=== PATIENT | male | born 1995 | race American Indian/Alaskan Native ===

== ENCOUNTER 2019-08-12 05:33 | Emergency (ER) | payer SELFPAY ==
[2019-08-12] MEDS ORDERED: ASPIRIN 325 MG TAB PO ONE (05:39)
--- NOTE | 2019-08-12 05:51 | Event Note ---
ED Screening Note Date of service: 08/12/19 ED Screening Note: This initial assessment/diagnostic orders/clinical plan/treatment(s) is/are subject to change based on patients health status, clinical progression and re- assessment by fellow clinical providers in the ED. Further treatment and workup at subsequent clinical providers discretion. Patient/guardian urged not to elope from the ED as their condition may be serious if not clinically assessed and managed. Patient is a 23-year-old male who is presenting with some chest discomfort for the past 2 days. Patient also has some shortness of breath and some difficulty with breathing when he lays flat. Patient states a year ago he had pericarditis in the having some issues since. Patient did recently travel to [place] from [place] 2 weeks ago Initial orders include: A cardiac workup including d-dimer since the patient had recent travel. The EKG was reviewed and showed no ST segment elevation or depression. Patient does have some T-wave abnormality present.
--- NOTE | 2019-08-12 06:10 | XRay Report ---
CHEST 2 VIEWS INDICATION / CLINICAL INFORMATION: chest pain. COMPARISON: None available. FINDINGS: SUPPORT DEVICES: None. HEART / MEDIASTINUM: No significant abnormality. LUNGS / PLEURA: No significant pulmonary or pleural abnormality. No pneumothorax. ADDITIONAL FINDINGS: No significant additional findings. IMPRESSION: 1. No acute findings. Signer Name: Raissa Bustamante MD Signed: 08/12/2019 6:06 AM Workstation Name: [id number]
[2019-08-12 06:23] LABS: Basophils # (Auto) 0.1 K/mm3 (0.0-0.1); Basophils % (Auto) 0.7 % (0.0-1.8); Eosinophils # (Auto) 0.2 K/mm3 (0.0-0.4); Eosinophils % (Auto) 2.8 % (0.0-4.3); Hematocrit 43.5 % (35.5-45.6); Hemoglobin 15.1 gm/dl (11.8-15.2); Lymphocytes # (Auto) 3.8 K/mm3 (1.2-5.4); Lymphocytes % (Auto) 46.4 % (13.4-35.0); Mean Corpuscular HGB Conc 35 % (32-34); Mean Corpuscular Volume 83 fl (84-94); Monocytes # (Auto) 0.7 K/mm3 (0.0-0.8); Monocytes % (Auto) 8.6 % (0.0-7.3); Platelet Count 244 K/mm3 (140-440); Red Blood Count 5.25 M/mm3 (3.65-5.03); Red Cell Distribution Width 13.9 % (13.2-15.2)
[2019-08-12 06:40] LABS: BUN/Creatinine Ratio 22; Blood Urea Nitrogen 22 mg/dL (9-20); Calcium 9.2 mg/dL (8.4-10.2); Hemolysis Index 7
[2019-08-12 06:46] LABS: INR 1.22 (0.87-1.13)
[2019-08-12 06:47] LABS: Partial Thromboplastin Time 30.3 Sec. (24.2-36.6)
[2019-08-12] MEDS ORDERED: PANTOPRAZOLE 40 MG INJ IV ONE (06:47)
[2019-08-12] MEDS ORDERED: KETOROLAC 30 MG/1 ML INJ IV ONE (06:47)
--- NOTE | 2019-08-12 06:48 | Emergency Department Report ---
ED Chest Pain HPI - General Chief Complaint: Chest Pain Stated Complaint: CHEST PAIN Time Seen by Provider: 08/12/19 05:39 Source: patient, EMS Mode of arrival: Stretcher Limitations: No Limitations - History of Present Illness Initial Comments: This is a 23-year-old man who was diagnosed with pericarditis about a year ago at [facility] in [facility]. He states he was less back to that facility 3 weeks ago with similar symptoms. 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 He is a poor historian. However, from what I can tell it seems that he had an echocardiogram that showed a pericardial effusion. He is never had a pericardiocentesis. He had a brief hospitalization. Patient states that his chest hurts "every day. He complains of pain in the epigastric subxiphoid region which she states also involves the back. It is intermittent. He has not been sweating or short of breath acutely. He states he has some chronic shortness of breath. 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 He does not complain of any acute nausea vomiting. It is hard to identify a reason why he came specifically today. He states his symptoms are really quite recurrent. Has no doctor in the area yet. MD Complaint: chest pain -: year(s) Onset: during rest Pain Location: epigastric, other (subxiphoid) Pain Radiation: back Quality: aching Consistency: intermittent Improves With: nothing Worsens With: nothing Context: other (history of pericarditis) re: dyspnea (vague). denies: nausea, vomting, diaphoresis Other Symptoms: denies: cough, fever, syncope Treatments Prior to Arrival: none Aspirin use within the Past 7 Days: (0) No - Related Data Previous Rx's Medication Instructions Recorded Last Taken Type Lansoprazole [Prevacid] 15 mg PO BID #30 cap 08/12/19 Unknown Rx traMADol [Ultram 50 MG tab] 50 mg PO Q6HR PRN #10 tablet 08/12/19 Unknown Rx Allergies Allergy/AdvReac Type Severity Reaction Status Date / Time No Known Allergies Allergy Verified 08/12/19 05:43 Heart Score - HEART Score History: Slightly suspicious EKG: Normal Age: < 45 Risk factors: No known risk factors Troponin: < normal limit HEART Score: 0 - Critical Actions Critical Actions: 0-3 pts:0.9-1.7%risk of adverse cardiac event.Candidate for discharge ED Review of Systems ROS: Stated complaint: CHEST PAIN Other details as noted in HPI Constitutional: denies: chills, fever Eyes: denies: eye pain, eye discharge, vision change ENT: denies: ear pain, throat pain Respiratory: see HPI, shortness of breath. denies: cough, wheezing Cardiovascular: as per HPI, chest pain. denies: palpitations Endocrine: no symptoms reported Gastrointestinal: denies: abdominal pain, nausea, diarrhea Genitourinary: denies: urgency, dysuria Musculoskeletal: denies: back pain, joint swelling, arthralgia Skin: denies: rash, lesions Neurological: denies: headache, weakness, paresthesias Psychiatric: denies: anxiety, depression Hematological/Lymphatic: denies: easy bleeding, easy bruising ED Past Medical Hx - Past Medical History Previous Medical History?: Yes Additional medical history: pericarditis - Surgical History Past Surgical History?: No - Social History Smoking Status: Current Every Day Smoker Substance Use Type: None - Medications Home Medications: Home Medications Medication Instructions Recorded Confirmed Last Taken Type Lansoprazole [Prevacid] 15 mg PO BID #30 cap 08/12/19 Unknown Rx traMADol [Ultram 50 MG tab] 50 mg PO Q6HR PRN #10 tablet 08/12/19 Unknown Rx ED Physical Exam - General Limitations: No Limitations General appearance: alert, in no apparent distress - Head Head exam: Present: atraumatic, normocephalic - Eye Eye exam: Present: normal appearance. Absent: scleral icterus - ENT ENT exam: Present: mucous membranes moist - Neck Neck exam: Present: normal inspection. Absent: tenderness, meningismus - Respiratory Respiratory exam: Present: normal lung sounds bilaterally. Absent: respiratory distress - Cardiovascular Cardiovascular Exam: Present: regular rate, normal rhythm. Absent: systolic murmur, diastolic murmur, rubs, gallop - GI/Abdominal GI/Abdominal exam: Present: soft, normal bowel sounds. Absent: distended, tenderness, guarding, rebound - Rectal Rectal exam: Present: deferred - Extremities Exam Extremities exam: Present: normal inspection, normal capillary refill. Absent: pedal edema, joint swelling, calf tenderness - Back Exam Back exam: Present: normal inspection - Neurological Exam Neurological exam: Present: alert, oriented X3, CN II-XII intact. Absent: motor sensory deficit - Psychiatric Psychiatric exam: Present: normal affect, normal mood - Skin Skin exam: Present: warm, dry, intact, normal color. Absent: rash ED Course Vital Signs 08/12/19 08/12/19 08/12/19 05:43 06:00 06:30 Temperature 98.4 F Pulse Rate 64 64 Respiratory 13 15 20 Rate Blood Pressure 125/80 125/80 124/69 Blood Pressure [Right] O2 Sat by Pulse 98 99 98 Oximetry 08/12/19 08/12/19 07:13 07:15 Temperature 97.8 F Pulse Rate 57 L Respiratory 15 15 Rate Blood Pressure Blood Pressure 122/90 [Right] O2 Sat by Pulse Oximetry - Reevaluation(s) Reevaluation #1: Patient resting comfortably. He is chatting on the phone. He is appropriate for outpatient management. I don't see any indication of pericarditis. I am concerned that he has tenderness over the epigastrium. He will be given lansoprazole and analgesia. He is referred for follow-up. 08/12/19 07:52 ED Medical Decision Making - Lab Data Result diagrams: 08/12/19 05:55 08/12/19 05:55 Laboratory Results - last 24 hr 08/12/19 08/12/19 08/12/19 05:55 05:55 05:55 WBC 8.2 RBC 5.25 H Hgb 15.1 Hct 43.5 MCV 83 L MCH 29 MCHC 35 H RDW 13.9 Plt Count 244 Lymph % (Auto) 46.4 H [place] % (Auto) 8.6 H Eos % (Auto) 2.8 Baso % (Auto) 0.7 Lymph # 3.8 [place] # 0.7 Eos # 0.2 Baso # 0.1 Seg Neutrophils % 41.5 Seg Neutrophils # 3.4 PT 15.3 H INR 1.22 H APTT 30.3 Sodium 135 L Potassium 4.1 Chloride 100.1 Carbon Dioxide 25 Anion Gap 14 BUN 22 H Creatinine 1.0 Estimated GFR > 60 BUN/Creatinine Ratio 22 Glucose 94 Calcium 9.2 Troponin T < 0.010 Laboratory Results - last 24 hr 08/12/19 08/12/19 08/12/19 05:55 05:55 05:55 WBC 8.2 RBC 5.25 H Hgb 15.1 Hct 43.5 MCV 83 L MCH 29 MCHC 35 H RDW 13.9 Plt Count 244 Lymph % (Auto) 46.4 H [place] % (Auto) 8.6 H Eos % (Auto) 2.8 Baso % (Auto) 0.7 Lymph # 3.8 [place] # 0.7 Eos # 0.2 Baso # 0.1 Seg Neutrophils % 41.5 Seg Neutrophils # 3.4 PT 15.3 H INR 1.22 H APTT 30.3 D-Dimer Sodium 135 L Potassium 4.1 Chloride 100.1 Carbon Dioxide 25 Anion Gap 14 BUN 22 H Creatinine 1.0 Estimated GFR > 60 BUN/Creatinine Ratio 22 Glucose 94 Calcium 9.2 Total Bilirubin Direct Bilirubin Indirect Bilirubin AST ALT Alkaline Phosphatase Total Creatine Kinase CK-MB (CK-2) CK-MB (CK-2) Rel Index Troponin T < 0.010 C-Reactive Protein Total Protein Albumin Albumin/Globulin Ratio 08/12/19 08/12/19 05:55 06:57 WBC RBC Hgb Hct MCV MCH MCHC RDW Plt Count Lymph % (Auto) [place] % (Auto) Eos % (Auto) Baso % (Auto) Lymph # [place] # Eos # Baso # Seg Neutrophils % Seg Neutrophils # PT INR APTT D-Dimer 198.77 Sodium Potassium Chloride Carbon Dioxide Anion Gap BUN Creatinine Estimated GFR BUN/Creatinine Ratio Glucose Calcium Total Bilirubin 0.20 Direct Bilirubin < 0.2 Indirect Bilirubin 0.0 AST 28 ALT 42 Alkaline Phosphatase 83 Total Creatine Kinase 262 H CK-MB (CK-2) 1.7 CK-MB (CK-2) Rel Index 0.6 Troponin T C-Reactive Protein 0.20 Total Protein 7.7 Albumin 4.4 Albumin/Globulin Ratio 1.3 - EKG Data -: EKG Interpreted by Nh EKG shows normal: sinus rhythm Rate: normal - EKG Data Interpretation: nonspecific ST-T wave leona, other (nonspecific S1 Q3 T3 pattern) - Radiology Data Radiology results: image reviewed (no acute process) Critical care attestation.: If time is entered above; I have spent that time in minutes in the direct care of this critically ill patient, excluding procedure time. ED Disposition Clinical Impression: Atypical chest pain, Epigastric pain Disposition: TO HOME OR SELFCARE Is pt being admited?: No Does the pt Need Aspirin: No Condition: Stable Instructions: Chest Pain (ED), Abdominal Pain (ED) Additional Instructions: I would recommend further evaluation as an outpatient. See referrals. Rx as directed. Return any acute change or problem. Prescriptions: Lansoprazole [Prevacid] 15 mg PO BID #30 cap traMADol [Ultram 50 MG tab] 50 mg PO Q6HR PRN #10 tablet PRN Reason: Pain Referrals: TAWANNA DENG MD [Staff Physician] - 3-5 Days [facility] [Provider Group] - 2-3 Days Time of Disposition: 07:54
[2019-08-12 07:04] LABS: Creatine Kinase MB 1.7 ng/mL (0.0-4.0)
[2019-08-12 07:06] LABS: Alanine Aminotransferase 42 units/L (7-56); Albumin 4.4 g/dL (3.9-5)
[2019-08-12 07:16] LABS: Bilirubin,Direct < 0.2 mg/dL (0-0.2)
[2019-08-12 07:18] VITALS: BP 122/90
[2019-08-12 08:05] LABS: Erythrocyte Sedimentation Rate 9 mm/Hr (0-20)
[2019-08-12 08:10] LABS: Bilirubin,Urine NEG (Negative); Blood,Urine NEG (Negative); Color,Urine Yellow (Yellow); Protein,Urine <15 mg/dL mg/dL (Negative); Urobilinogen,Urine < 2.0 mg/dL (<2.0)
[2019-08-12 08:14] LABS: Amphetamine Screen,Urine PRESUMPTIVE NEGATIVE; Benzodiazepines Screen,Urine PRESUMPTIVE NEGATIVE; Cocaine Screen,Urine PRESUMPTIVE NEGATIVE; Methadone Screen,Urine PRESUMPTIVE NEGATIVE; Opiate Screen,Urine PRESUMPTIVE NEGATIVE
[2019-08-12 08:27] LABS: Cannabinoid Screen,Urine PRESUMPTIVE POSITIVE
== END 2019-08-12 08:30 | disposition home or self-care (01) ==
LOC: ED 05:33
DX: R07.89 Other chest pain (principal); R10.13 Epigastric pain; F17.200 Nicotine dependence, unspecified, uncomplicated; Z79.899 Other long term (current) drug therapy
CPT/HCPCS: 36415; 71046; 80048; 80076; 80307; 81001; 82550; 82553; 84484; 85025; 85379; 85610; 85652; 85730; 86140; 93005; 93010; 96374; 96375; 99285; C9113; J1885

== ENCOUNTER 2019-08-12 12:07 | Emergency (ER) | payer OTHER ==
--- NOTE | 2019-08-12 12:33 | Emergency Department Report ---
Blank Doc - Documentation Documentation: 23-year-old male that presents with returned chest pain. Was just discharged in the ED. Stated symptoms return. This initial assessment/diagnostic orders/clinical plan/treatment(s) is/are subject to change based on patient's health status, clinical progression and re-assessment by fellow clinical providers in the ED. Further treatment and workup at subsequent clinical providers discretion. Patient/guardians urged not to elope from the ED as their condition may be serious if not clinically assessed and managed. Initial orders include: 1- Patient sent to [facility] for further evaluation and treatment 2- labs reviewed from this morning. 3- Will repeat EKG and 1 trop level
[2019-08-12 12:34] VITALS: BP 135/74
== END 2019-08-12 13:30 | disposition left against medical advice (07) ==
LOC: ED 12:07
DX: R07.89 Other chest pain (principal); Z53.21 Procedure and treatment not carried out due to patient leaving prior to being seen by health care provider
CPT/HCPCS: 93005; 93010

== ENCOUNTER 2019-08-14 00:12 | Emergency (ER) | payer SELFPAY ==
[2019-08-14] MEDS ORDERED: KETOROLAC 30 MG/1 ML INJ IV ONE (00:31)
[2019-08-14] MEDS ORDERED: FAMOTIDINE 20 MG/2 ML INJ IV ONE (00:31)
--- NOTE | 2019-08-14 01:04 | Emergency Department Report ---
ED General Adult HPI - General Chief complaint: Chest Pain Stated complaint: CHEST PAIN Time Seen by Provider: 08/14/19 00:20 Source: patient, EMS ( EMS documentation not available at time of chart dictation ), RN notes reviewed, old records reviewed Mode of arrival: Stretcher Limitations: No Limitations - History of Present Illness Initial comments: This is a 23-year-old gentleman. This patient is not known to this provider previously. The patient recently moved here from [facility]. He reports that he took a [employer] bus down here, with frequent stops for gas and bathroom brakes. This is his third visit to this department for chest pain. He presents to the ER with a complaint of left-sided chest wall pain, palpitations and pressure. It does not radiate to the back, arms or neck. There is no vomiting or diaphoresis. The patient denies additional complaints. On review of systems, he does endorse chronic long-standing cannabis recreational consumption. He denies coingestions. He denies homicidality, suicidality and hallucinations. He was recently prescribed a proton pump inhibitor and tramadol at this facility by one of my colleagues, however, he did not fill this because of cost. The patient reports that he does not have a primary care doctor. The patient has had multiple ER visits to this hospital for chest pain He's had unremarkable laboratory studies, chest x-ray, and age-appropriate EKG. Currently, he is in no acute distress, and is playing with a cellular phone. -: Gradual Location: chest Radiation: non-radiation Severity scale (0 -10): 10 Quality: stabbing Consistency: intermittent, other Worsens with: movement, other (palpation) - Related Data Allergies Allergy/AdvReac Type Severity Reaction Status Date / Time No Known Allergies Allergy Verified 08/12/19 05:43 ED Review of Systems ROS: Stated complaint: CHEST PAIN Other details as noted in HPI Constitutional: denies: fever Eyes: denies: eye discharge ENT: denies: congestion Respiratory: denies: wheezing Cardiovascular: chest pain, palpitations Gastrointestinal: denies: vomiting Musculoskeletal: denies: back pain Psychiatric: denies: anxiety, depression, auditory hallucinations, visual hallucinations, homicidal thoughts, suicidal thoughts ED Past Medical Hx - Past Medical History Additional medical history: pericarditis - Social History Smoking Status: Current Every Day Smoker ED Physical Exam - General Limitations: No Limitations General appearance: alert, in no apparent distress - Head Head exam: Present: atraumatic, normocephalic - Eye Eye exam: Present: normal appearance, EOMI. Absent: nystagmus - ENT ENT exam: Present: normal exam, normal orophraynx, mucous membranes moist, normal external ear exam - Neck Neck exam: Present: normal inspection, full ROM. Absent: tenderness, meningismus - Respiratory Respiratory exam: Present: normal lung sounds bilaterally, chest wall tenderness. Absent: respiratory distress - Cardiovascular Cardiovascular Exam: Present: normal rhythm, bradycardia, normal heart sounds. Absent: systolic murmur, diastolic murmur, rubs, gallop - GI/Abdominal GI/Abdominal exam: Present: soft. Absent: distended, tenderness, guarding, rebound, rigid, pulsatile mass - Rectal Rectal exam: Present: deferred - Extremities Exam Extremities exam: Present: normal inspection, full ROM, other (2+ pulses noted in the bilateral upper, lower extremities. There is no long bone tenderness. Musculoskeletal compartments are soft. The pelvis is stable.). Absent: pedal edema, calf tenderness - Back Exam Back exam: Present: normal inspection, full ROM. Absent: tenderness, CVA tenderness (R), CVA tenderness (L), paraspinal tenderness, vertebral tenderness - Neurological Exam Neurological exam: Present: alert, other (there is no facial droop. The tongue is midline. Extraocular movements are intact bilaterally. Patient speaking in full complete sentences. Shoulder shrug is intact bilaterally. Hearing is grossly intact bilaterally. Visual acuity intact to finger counting and color perception at a close distance. 5/5 strength 4 extremities. Sensation intact to light touch in 4 extremities.). Absent: motor sensory deficit - Psychiatric Psychiatric exam: Present: normal affect, normal mood. Absent: homicidal ideation, suicidal ideation - Skin Skin exam: Present: warm, dry, intact, normal color. Absent: rash ED Course Vital Signs 08/14/19 08/14/19 00:43 00:46 Temperature 98.1 F Pulse Rate 58 L Respiratory 18 16 Rate Blood Pressure 105/63 O2 Sat by Pulse 100 Oximetry ED Medical Decision Making - Lab Data Vital Signs 08/14/19 08/14/19 00:43 00:46 Temperature 98.1 F Pulse Rate 58 L Respiratory 18 16 Rate Blood Pressure 105/63 O2 Sat by Pulse 100 Oximetry - EKG Data -: EKG Interpreted by Me EKG shows normal: sinus rhythm Rate: bradycardia - EKG Data When compared to previous EKG there are: no significant change Interpretation: normal EKG 08/14/19 01:03 The EKG shows a sinus bradycardia, 56 bpm, normal axis, QTC 350 ms, high left ventricular voltage, the EKG is unchanged from prior, there is early repolarization, the EKG is not consistent with ST elevation myocardial infarction. - Radiology Data Radiology results: pending, report reviewed, image reviewed Prior chest x-rays are reviewed and appreciated - Medical Decision Making Differential diagnosis, including not limited to: Anxiety, GERD, gastritis, costochondritis, cannabis dependence Assessment and plan: 23-year-old gentleman with recurrent complaint of chest wall pain, palpitations. He is afebrile with reassuring vital signs. There is a very strong odor of cannabis emanating from the patient, and he does endorse recreational cannabis use. However, he is clinically sober at this time. He exhibits decision-making capacity at this time. He is not tachycardic, hypoxic, or tachypneic, he is low risk by well's criteria for pulmonary embolism, and he is also perc negative He's recently had an ACS risk stratification at this hospital within the past week this is unlikely to be ACS extensive discussion had with patient regarding need to cease marijuana consumption he can follow up with an outpatient primary physician he does not appear to have an emergent condition at this time Critical care attestation.: If time is entered above; I have spent that time in minutes in the direct care of this critically ill patient, excluding procedure time. ED Disposition Clinical Impression: Chest wall pain, Marijuana use Disposition: - TO HOME OR SELFCARE Is pt being admited?: No Does the pt Need Aspirin: No Condition: Stable Additional Instructions: Patient may discontinue Prevacid, and tramadol. Patient may take [id number] Protonix as directed on the package for sensation of chest pain and heartburn. Patient may also take ibuprofen, 600 mg with food, every 6 hours, alternating with Tylenol, 650 mg, every 4-6 hours, as needed for pain. Recommend the patient stop consuming cannabis and marijuana. These may be contributing to his symptoms. In addition, marijuana consumption is not medically regulated in the [facility], and patient runs the risk of having marijuana contaminated with chemicals which may cause disability, , paralysis, loss of quality of life. Recommend patient follow-up with the primary care doctor within the next month. Please return to the emergency room right away with new, worsened or different symptoms not present on the initial emergency room evaluation. Referrals: [facility] [Provider Group] - 3-5 Days [facility] [Provider Group] - 3-5 Days
[2019-08-14 01:34] VITALS: BP 120/68
== END 2019-08-14 01:34 | disposition home or self-care (01) ==
LOC: ED 00:12
DX: R07.89 Other chest pain (principal); F12.10 Cannabis abuse, uncomplicated; F17.200 Nicotine dependence, unspecified, uncomplicated
CPT/HCPCS: 93005; 93010; 96374; 96375; 99284; J1885

== ENCOUNTER 2019-11-14 02:41 | Emergency (ER) | payer SELFPAY ==
[2019-11-14] MEDS ORDERED: HYDROcodone/ACETAMINOPHEN 5-325 MG TAB PO ONE (02:54)
[2019-11-14] MEDS ORDERED: ASPIRIN 325 MG TAB PO ONE (02:55)
[2019-11-14] MEDS ORDERED: ASPIRIN 325 MG TAB ONE (02:56)
--- NOTE | 2019-11-14 02:58 | Emergency Department Report ---
Chief Complaint: Chest Pain Stated Complaint: CHEST PAIN - HPI History of Present Illness: 23 y/o M p/w a cc of CP. 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 Pt admits to SOB and n/v but denies diaphoresis. Pt admits to slight pleurisy but denies recent flights/long car trips. MSE screening note: Focused history and physical exam performed. Due to findings the following was ordered: cbc, bmp, cardiac enzymes, ddimer, ekg ED Disposition for MSE Condition: Stable
[2019-11-14 03:22] LABS: Basophils # (Auto) 0.1 K/mm3 (0.0-0.1); Eosinophils # (Auto) 0.2 K/mm3 (0.0-0.4); Eosinophils % (Auto) 2.7 % (0.0-4.3); Monocytes # (Auto) 0.5 K/mm3 (0.0-0.8); Monocytes % (Auto) 8.1 % (0.0-7.3)
[2019-11-14 03:36] LABS: Basophils % (Auto) 1.1 % (0.0-1.8); Creatine Kinase MB 2.1 ng/mL (0.0-4.0); Hematocrit 43.9 % (35.5-45.6); Hemoglobin 15.5 gm/dl (11.8-15.2); Lymphocytes # (Auto) 3.3 K/mm3 (1.2-5.4); Lymphocytes % (Auto) 49.7 % (13.4-35.0); Mean Corpuscular HGB Conc 35 % (32-34); Mean Corpuscular Volume 83 fl (84-94); Platelet Count 270 K/mm3 (140-440); Red Blood Count 5.29 M/mm3 (3.65-5.03)
[2019-11-14 03:37] LABS: BUN/Creatinine Ratio 17; Blood Urea Nitrogen 17 mg/dL (9-20); Calcium 9.8 mg/dL (8.4-10.2); Hemolysis Index 8
[2019-11-14 04:27] VITALS: BP 113/68
[2019-11-14] MEDS ORDERED: KETOROLAC 60 MG/2 ML INJ IM ONE (04:28)
--- NOTE | 2019-11-14 05:01 | XRay Report ---
CHEST 2 VIEWS INDICATION / CLINICAL INFORMATION: chest pain. COMPARISON: 2 views of the chest from 08/12/2019. FINDINGS: SUPPORT DEVICES: None. HEART / MEDIASTINUM: No significant abnormality. LUNGS / PLEURA: No significant pulmonary or pleural abnormality. No pneumothorax. ADDITIONAL FINDINGS: No significant additional findings. IMPRESSION: 1. No acute abnormality of the chest. Signer Name: Dean Gibbs MD Signed: 11/14/2019 4:56 AM Workstation Name: [id number]
--- NOTE | 2019-11-14 05:19 | Emergency Department Report ---
ED Chest Pain HPI - General Chief Complaint: Chest Pain Stated Complaint: CHEST PAIN Time Seen by Provider: 11/14/19 04:23 Source: patient Mode of arrival: Ambulatory Limitations: No Limitations - History of Present Illness Initial Comments: Patient is a 23-year-old male with past medical history of one episode of pericarditis who is presenting with left-sided chest pain. Patient states pain started several hours ago while at work. Patient denies heavy lifting but states it hurts when he moves. Patient has had a mild cough for the last 2-3 days which is nonproductive. He denies fevers shortness of breath nausea vomiting or diarrhea. He states the pain in the left chest is 6 out of 10 in severity. A DNA chip. Occasionally sharp. There is some pain with deep breathing. Severity scale (0 -10): 10 - Related Data Previous Rx's Medication Instructions Recorded Last Taken Type Albuterol INH(or & Nicu Only) 2 puff IH QID PRN #1 inhalation 11/14/19 Unknown Rx [ProAir HFA Inhaler] predniSONE [Deltasone] 20 mg PO QDAY #5 tab 11/14/19 Unknown Rx traMADoL [Ultram] 50 mg PO Q6HR PRN #10 tablet 11/14/19 Unknown Rx Allergies Allergy/AdvReac Type Severity Reaction Status Date / Time No Known Allergies Allergy Verified 08/12/19 05:43 Heart Score - HEART Score History: Slightly suspicious EKG: Normal Age: < 45 Risk factors: No known risk factors Troponin: < normal limit HEART Score: 0 ED Review of Systems ROS: Stated complaint: CHEST PAIN Other details as noted in HPI Comment: All other systems reviewed and negative ED Past Medical Hx - Past Medical History Previous Medical History?: Yes Additional medical history: pericarditis - Surgical History Past Surgical History?: No - Social History Smoking Status: Current Some Day Smoker Substance Use Type: None - Medications Home Medications: Home Medications Medication Instructions Recorded Confirmed Last Taken Type Albuterol INH(or & Nicu Only) 2 puff IH QID PRN #1 inhalation 11/14/19 Unknown Rx [ProAir HFA Inhaler] predniSONE [Deltasone] 20 mg PO QDAY #5 tab 11/14/19 Unknown Rx traMADoL [Ultram] 50 mg PO Q6HR PRN #10 tablet 11/14/19 Unknown Rx ED Physical Exam - General Limitations: No Limitations General appearance: alert, in no apparent distress - Head Head exam: Present: atraumatic, normocephalic - Eye Eye exam: Present: normal appearance - ENT ENT exam: Present: mucous membranes moist - Neck Neck exam: Present: normal inspection - Respiratory Respiratory exam: Present: normal lung sounds bilaterally, chest wall tenderness (left-sided). Absent: respiratory distress, wheezes, rales, rhonchi - Cardiovascular Cardiovascular Exam: Present: regular rate, normal rhythm, normal heart sounds. Absent: systolic murmur, diastolic murmur, rubs, gallop - GI/Abdominal GI/Abdominal exam: Present: soft, normal bowel sounds. Absent: distended, tenderness, guarding, rebound - Rectal Rectal exam: Present: deferred - Extremities Exam Extremities exam: Present: normal inspection - Back Exam Back exam: Present: normal inspection - Neurological Exam Neurological exam: Present: alert, oriented X3 - Psychiatric Psychiatric exam: Present: normal affect, normal mood - Skin Skin exam: Present: warm, dry, intact, normal color. Absent: rash ED Course Vital Signs 11/14/19 11/14/19 02:50 04:27 Temperature 98.5 F Pulse Rate 67 54 L Respiratory 18 24 Rate Blood Pressure 124/70 Blood Pressure 113/68 [righ arm] O2 Sat by Pulse 96 97 Oximetry GUDELIA score - Gudelia Score Aspirin use within the Past 7 Days: (0) No ED Medical Decision Making - Lab Data Result diagrams: 11/14/19 02:56 11/14/19 02:56 Lab Results 11/14/19 11/14/19 11/14/19 Range/Units 02:56 02:56 02:56 WBC 6.7 (4.5-11.0) K/mm3 RBC 5.29 H (3.65-5.03) M/mm3 Hgb 15.5 H (11.8-15.2) gm/dl Hct 43.9 (35.5-45.6) % MCV 83 L (84-94) fl MCH 29 (28-32) pg MCHC 35 H (32-34) % RDW 14.0 (13.2-15.2) % Plt Count 270 (140-440) K/mm3 Lymph % (Auto) 49.7 H (13.4-35.0) % Tate % (Auto) 8.1 H (0.0-7.3) % Eos % (Auto) 2.7 (0.0-4.3) % Baso % (Auto) 1.1 (0.0-1.8) % Lymph # 3.3 (1.2-5.4) K/mm3 Tate # 0.5 (0.0-0.8) K/mm3 Eos # 0.2 (0.0-0.4) K/mm3 Baso # 0.1 (0.0-0.1) K/mm3 Seg Neutrophils % 39.3 L (40.0-70.0) % Seg Neutrophils # 2.6 (1.8-7.7) K/mm3 D-Dimer 141.32 (0-234) ng/mlDDU Sodium 135 L (137-145) mmol/L Potassium 4.0 (3.6-5.0) mmol/L Chloride 98.9 (98-107) mmol/L Carbon Dioxide 23 (22-30) mmol/L Anion Gap 17 mmol/L BUN 17 (9-20) mg/dL Creatinine 1.0 (0.8-1.5) mg/dL Estimated GFR > 60 ml/min BUN/Creatinine Ratio 17 % Glucose 107 H (75-100) mg/dL Calcium 9.8 (8.4-10.2) mg/dL Total Creatine Kinase 344 H (55-170) units/L CK-MB (CK-2) 2.1 (0.0-4.0) ng/mL CK-MB (CK-2) Rel Index 0.6 (0-4) Troponin T < 0.010 (0.00-0.029) ng/mL - EKG Data -: EKG Interpreted by De EKG shows normal: sinus rhythm, axis, intervals, QRS complexes, ST-T waves Rate: normal - EKG Data Interpretation: normal EKG - Radiology Data Chest x-ray is within normal limits - Medical Decision Making Patient is a 23-year-old Male was presented with left-sided chest pain. Patient has had a mild cough. D-dimer was ordered to rule out the potential for PE. D- dimer was within normal limits. Patient's EKG shows no evidence of acute pericarditis. Patient's other laboratory studies are within normal limits. Patient likely with. Upper respiratory infection and with costochondritis or chest wall pain. Patient will be given medication for symptomatic relief be discharged home. Critical care attestation.: If time is entered above; I have spent that time in minutes in the direct care of this critically ill patient, excluding procedure time. ED Disposition Clinical Impression: Atypical chest pain, Upper respiratory infection, Acute costochondritis Disposition: DC-01 TO HOME OR SELFCARE Is pt being admited?: No Does the pt Need Aspirin: No Condition: Stable Instructions: Chest Pain (ED) Referrals: PRIMARY CARE, [Primary Care Provider] - 3-5 Days Time of Disposition: 05:17
== END 2019-11-14 05:52 | disposition home or self-care (01) ==
LOC: ED 02:41
DX: M94.0 Chondrocostal junction syndrome [Tietze] (principal); J06.9 Acute upper respiratory infection, unspecified; R07.89 Other chest pain; F17.200 Nicotine dependence, unspecified, uncomplicated; Z79.899 Other long term (current) drug therapy
CPT/HCPCS: 36415; 71046; 80048; 82550; 82553; 84484; 85025; 85379; 93005; 93010; 96372; 99284; J1885

== ENCOUNTER 2019-11-17 12:56 | Emergency (ER) | payer SELFPAY ==
[2019-11-17 13:08] VITALS: BP 146/82
--- NOTE | 2019-11-17 13:29 | Emergency Department Report ---
Blank Doc - Documentation Documentation: 23-year-old male that presents with sore throat, right flank pain, and cough. This initial assessment/diagnostic orders/clinical plan/treatment(s) is/are subject to change based on patient's health status, clinical progression and re- assessment by fellow clinical providers in the ED. Further treatment and workup at subsequent clinical providers discretion. Patient/guardians urged not to elope from the ED as their condition may be serious if not clinically assessed and managed. Initial orders include: 1- Patient sent to [facility] for further evaluation and treatment 2- CXR 3- UA
[2019-11-17 14:16] LABS: Bilirubin,Urine NEG (Negative); Blood,Urine NEG (Negative); Color,Urine Amber (Yellow); Mucus,Urine 2+ /HPF; Protein,Urine <15 mg/dL mg/dL (Negative); Urobilinogen,Urine < 2.0 mg/dL (<2.0)
--- NOTE | 2019-11-17 15:00 | XRay Report ---
CHEST 2 VIEWS INDICATION: cough. COMPARISON: 11/14/2019 FINDINGS: Support devices: None. Heart: Within normal limits. Pulmonary vasculature: Normal. Lungs/pleura: No acute air space or interstitial disease. No pneumothorax. Additional findings: None. IMPRESSION: 1. Normal chest. Signer Name: Brooks Jimenez MD Signed: 11/17/2019 2:56 PM Workstation Name: [id number]
--- NOTE | 2019-11-17 15:18 | Emergency Department Report ---
ED ENT HPI - General Chief complaint: Upper Respiratory Infection Stated complaint: TIGHT IN THROAT Time Seen by Provider: 11/17/19 13:30 Source: patient, EMS Mode of arrival: Ambulatory Limitations: No Limitations - History of Present Illness Initial comments: patient is a 23-year-old male who presents to ED complaining of throat pain 4 days. Patient describes pain as throbbing in nature, 8 out of 10 intensity, nonradiating, localized to his throat. Admits pain with swallowing and eating. Patient admits no appetite due to throat pain. Patient admits dry, nonproductive cough. Patient admits fever for the first 2 days but not at the moment. Patient denies nausea/vomiting/abdominal pain/shortness of breath/chest pain/headache. MD complaint: sore throat - Related Data Previous Rx's Medication Instructions Recorded Last Taken Type Albuterol INH(or & Nicu Only) 2 puff IH QID PRN #1 inhalation 11/14/19 Unknown Rx [ProAir HFA Inhaler] predniSONE [Deltasone] 20 mg PO QDAY #5 tab 11/14/19 Unknown Rx traMADoL [Ultram] 50 mg PO Q6HR PRN #10 tablet 11/14/19 Unknown Rx Amoxicillin [Trimox CAP] 500 mg PO Q8H #21 capsule 11/17/19 Unknown Rx Ibuprofen [Motrin 800 MG tab] 800 mg PO Q8HR PRN #30 tablet 11/17/19 Unknown Rx Nystas/Diphen/Xyl Visc/Mylanta 15 ml MM Q6H PRN #120 ml 11/17/19 Unknown Rx [Magic Mouthwash] Allergies Allergy/AdvReac Type Severity Reaction Status Date / Time No Known Allergies Allergy Verified 08/12/19 05:43 ED Dental HPI - General Chief complaint: Upper Respiratory Infection Stated complaint: TIGHT IN THROAT Time Seen by Provider: 11/17/19 13:30 Source: patient, EMS Mode of arrival: Ambulatory Limitations: No Limitations - Related Data Previous Rx's Medication Instructions Recorded Last Taken Type Albuterol INH(or & Nicu Only) 2 puff IH QID PRN #1 inhalation 11/14/19 Unknown Rx [ProAir HFA Inhaler] predniSONE [Deltasone] 20 mg PO QDAY #5 tab 11/14/19 Unknown Rx traMADoL [Ultram] 50 mg PO Q6HR PRN #10 tablet 11/14/19 Unknown Rx Amoxicillin [Trimox CAP] 500 mg PO Q8H #21 capsule 11/17/19 Unknown Rx Ibuprofen [Motrin 800 MG tab] 800 mg PO Q8HR PRN #30 tablet 11/17/19 Unknown Rx Nystas/Diphen/Xyl Visc/Mylanta 15 ml MM Q6H PRN #120 ml 11/17/19 Unknown Rx [Magic Mouthwash] Allergies Allergy/AdvReac Type Severity Reaction Status Date / Time No Known Allergies Allergy Verified 08/12/19 05:43 ED Review of Systems ROS: Stated complaint: TIGHT IN THROAT Other details as noted in HPI Comment: All other systems reviewed and negative ED Past Medical Hx - Past Medical History Previous Medical History?: No Additional medical history: pericarditis - Surgical History Past Surgical History?: No - Social History Smoking Status: Current Every Day Smoker Substance Use Type: None - Medications Home Medications: Home Medications Medication Instructions Recorded Confirmed Last Taken Type Albuterol INH(or & Nicu Only) 2 puff IH QID PRN #1 inhalation 11/14/19 Unknown Rx [ProAir HFA Inhaler] predniSONE [Deltasone] 20 mg PO QDAY #5 tab 11/14/19 Unknown Rx traMADoL [Ultram] 50 mg PO Q6HR PRN #10 tablet 11/14/19 Unknown Rx Amoxicillin [Trimox CAP] 500 mg PO Q8H #21 capsule 11/17/19 Unknown Rx Ibuprofen [Motrin 800 MG tab] 800 mg PO Q8HR PRN #30 tablet 11/17/19 Unknown Rx Nystas/Diphen/Xyl Visc/Mylanta 15 ml MM Q6H PRN #120 ml 11/17/19 Unknown Rx [Magic Mouthwash] ED Physical Exam - General Limitations: No Limitations General appearance: alert, in no apparent distress - Head Head exam: Present: atraumatic, normocephalic - Eye Eye exam: Present: normal appearance - ENT ENT exam: Present: mucous membranes moist - Expanded ENT Exam Expanded Throat exam: Positive: tonsillar erythema, tonsillomegaly, tonsillar exudate - Neck Neck exam: Present: normal inspection, full ROM, lymphadenopathy. Absent: tenderness - Respiratory Respiratory exam: Present: normal lung sounds bilaterally. Absent: respiratory distress - Cardiovascular Cardiovascular Exam: Present: regular rate, normal rhythm. Absent: systolic murmur, diastolic murmur, rubs, gallop - GI/Abdominal GI/Abdominal exam: Present: soft, normal bowel sounds - Rectal Rectal exam: Present: deferred - Extremities Exam Extremities exam: Present: normal inspection - Back Exam Back exam: Present: normal inspection - Neurological Exam Neurological exam: Present: alert, oriented X3 - Psychiatric Psychiatric exam: Present: normal affect, normal mood - Skin Skin exam: Present: warm, dry, intact, normal color. Absent: rash ED Course Vital Signs 11/17/19 11/17/19 13:03 13:28 Temperature 98.9 F Pulse Rate 92 H 91 H Respiratory 16 18 Rate Blood Pressure 146/82 146/82 O2 Sat by Pulse 96 97 Oximetry ED Medical Decision Making - Medical Decision Making 23-year-old male presents with strep pharyngitis. ED course: Patient received 1 dose of Tylenol, 1.2 million units of penicillin, 60 mg of prednisone. Fever responsive to one dose of Tylenol. Vital signs stable patient is in no acute or respiratory distress. Discussed findings with patient about the positive strep. Discussed treatment in ED with patient Discussed the patient that strep throat is contagious and to limit sharing spoons and such. Discussed with patient follow-up with primary care physician. Patient verbally states he understands and will comply to follow-up. Critical care attestation.: If time is entered above; I have spent that time in minutes in the direct care of this critically ill patient, excluding procedure time. ED Disposition Clinical Impression: Acute pharyngitis, Acute bacterial tonsillitis Disposition: - TO HOME OR SELFCARE Is pt being admited?: No Does the pt Need Aspirin: No Condition: Stable Instructions: Tonsillitis (ED) Additional Instructions: Make sure to follow up with the primary care physician as discussed. Take all your medications as you've been prescribed. If you have any worsening symptoms or develop new symptoms please return to ED immediately. Forms: Accompanied Note, Work/School Release Form(ED) Time of Disposition: 15:22
== END 2019-11-17 15:48 | disposition home or self-care (01) ==
LOC: ED 12:56
DX: J03.90 Acute tonsillitis, unspecified (principal); F17.200 Nicotine dependence, unspecified, uncomplicated; Z79.899 Other long term (current) drug therapy
CPT/HCPCS: 71046; 81001; 87086

== ENCOUNTER 2020-02-24 22:32 | Emergency (ER) | payer SELFPAY ==
--- NOTE | 2020-02-24 23:38 | XRay Report ---
CHEST 1 VIEW INDICATION / CLINICAL INFORMATION: Chest Pain. COMPARISON: 11/17/2019 FINDINGS: SUPPORT DEVICES: None. HEART / MEDIASTINUM: No significant abnormality. LUNGS / PLEURA: No significant pulmonary or pleural abnormality.. No pneumothorax. ADDITIONAL FINDINGS: No significant additional findings. IMPRESSION: 1. No acute findings. Signer Name: Lito Bell MD Signed: 02/24/2020 11:33 PM Workstation Name: [id number]
[2020-02-25 01:07] VITALS: BP 110/65
--- NOTE | 2020-02-25 02:47 | Emergency Department Report ---
ED General Adult HPI - General Chief complaint: Chest Pain Stated complaint: CHEST PAIN Time Seen by Provider: 02/25/20 02:33 Source: patient Mode of arrival: Ambulatory Limitations: No Limitations - History of Present Illness Initial comments: Mr. Mccormack is a 24-year-old -[place] male who presents for epigastric pain he has a history of asthma and GERD. Advises nonadherent with current treatment plan. He denies shortness of breath or nausea vomiting. Does endorse occasional heartburn heartburn today was 04/14. Described as burning and pr essure. Patient has not taken [id number] medication for acid reflux, pt states symptoms exacerbated by environmental exposure, symptoms relieved by nothing tried. Onset/Timin -: days(s) Location: abdomen Radiation: non-radiation Severity scale (0 -10): 3 Quality: aching Consistency: intermittent Improves with: none Worsens with: none Associated Symptoms: denies: nausea/vomiting Treatments Prior to Arrival: none - Related Data Previous Rx's Medication Instructions Recorded Last Taken Type Albuterol INH(or & Nicu Only) 2 puff IH QID PRN #1 inhalation 11/14/19 Unknown Rx [ProAir HFA Inhaler] predniSONE [Deltasone] 20 mg PO QDAY #5 tab 11/14/19 Unknown Rx traMADoL [Ultram 50 MG tab] 50 mg PO Q6HR PRN #10 tablet 11/14/19 Unknown Rx Amoxicillin [Trimox CAP] 500 mg PO Q8H #21 capsule 11/17/19 Unknown Rx Ibuprofen [Motrin 800 MG tab] 800 mg PO Q8HR PRN #30 tablet 11/17/19 Unknown Rx Nystas/Diphen/Xyl Visc/Mylanta 15 ml MM Q6H PRN #120 ml 11/17/19 Unknown Rx [Magic Mouthwash] Albuterol INH(or & Nicu Only) 2 puff IH QID PRN #8.5 gram 02/25/20 Unknown Rx [ProAir HFA Inhaler] predniSONE [Deltasone] 20 mg PO QDAY 5 Days #10 tab 02/25/20 Unknown Rx Allergies Allergy/AdvReac Type Severity Reaction Status Date / Time No Known Allergies Allergy Verified 08/12/19 05:43 ED Review of Systems ROS: Stated complaint: CHEST PAIN Other details as noted in HPI Constitutional: denies: chills, fever Eyes: denies: eye pain, eye discharge, vision change ENT: denies: ear pain, throat pain Respiratory: denies: cough, shortness of breath, wheezing Cardiovascular: denies: chest pain, palpitations Endocrine: no symptoms reported Gastrointestinal: abdominal pain, nausea. denies: vomiting, diarrhea, constipation, melena Genitourinary: denies: urgency, dysuria, frequency, hematuria Musculoskeletal: as per HPI. denies: back pain Skin: denies: rash, lesions Neurological: denies: headache, weakness, paresthesias Psychiatric: denies: anxiety, depression Hematological/Lymphatic: denies: easy bleeding, easy bruising ED Past Medical Hx - Past Medical History Additional medical history: pericarditis - Surgical History Past Surgical History?: No - Social History Smoking Status: Current Every Day Smoker Substance Use Type: None - Medications Home Medications: Home Medications Medication Instructions Recorded Confirmed Last Taken Type Albuterol INH(or & Nicu Only) 2 puff IH QID PRN #1 inhalation 11/14/19 Unknown Rx [ProAir HFA Inhaler] predniSONE [Deltasone] 20 mg PO QDAY #5 tab 11/14/19 Unknown Rx traMADoL [Ultram 50 MG tab] 50 mg PO Q6HR PRN #10 tablet 11/14/19 Unknown Rx Amoxicillin [Trimox CAP] 500 mg PO Q8H #21 capsule 11/17/19 Unknown Rx Ibuprofen [Motrin 800 MG tab] 800 mg PO Q8HR PRN #30 tablet 11/17/19 Unknown Rx Nystas/Diphen/Xyl Visc/Mylanta 15 ml MM Q6H PRN #120 ml 11/17/19 Unknown Rx [Magic Mouthwash] Albuterol INH(or & Nicu Only) 2 puff IH QID PRN #8.5 gram 02/25/20 Unknown Rx [ProAir HFA Inhaler] predniSONE [Deltasone] 20 mg PO QDAY 5 Days #10 tab 02/25/20 Unknown Rx ED Physical Exam - General Limitations: No Limitations General appearance: alert, in no apparent distress - Head Head exam: Present: atraumatic, normocephalic - Eye Eye exam: Present: normal appearance, PERRL, EOMI - ENT ENT exam: Present: mucous membranes moist - Neck Neck exam: Present: normal inspection, full ROM. Absent: tenderness - Respiratory Respiratory exam: Present: normal lung sounds bilaterally, chest wall tenderness (right anterior lateral chest wall pain ). Absent: respiratory distress, wheezes, stridor - Cardiovascular Cardiovascular Exam: Present: regular rate, normal rhythm, normal heart sounds. Absent: systolic murmur, diastolic murmur, rubs, gallop - GI/Abdominal GI/Abdominal exam: Present: soft, normal bowel sounds. Absent: distended, tenderness, guarding, rebound, rigid, bruit, hernia - Rectal Rectal exam: Present: deferred - Extremities Exam Extremities exam: Present: normal inspection, full ROM. Absent: tenderness, normal capillary refill - Back Exam Back exam: Present: normal inspection, full ROM. Absent: tenderness, CVA tenderness (R), CVA tenderness (L) - Neurological Exam Neurological exam: Present: alert, oriented X3, CN II-XII intact, normal gait, reflexes normal - Expanded Neurological Exam Expanded Patient oriented to: Present: person, place, time Speech: Present: fluid speech Motor strength exam: RUE: 5, LUE: 5, RLE: 5, LLE: 5 Best Eye Response (Marnie): (4) open spontaneously Best Motor Response (Wilmot): (6) obeys commands Best Verbal Response (Marnie): (5) oriented Wilmot Total: 15 - Psychiatric Psychiatric exam: Present: normal affect, normal mood - Skin Skin exam: Present: warm, dry, intact, normal color ED Course Vital Signs 02/24/20 02/25/20 22:37 01:01 Temperature 98.5 F 98.0 F Pulse Rate 73 65 Respiratory 20 20 Rate Blood Pressure 146/81 110/65 O2 Sat by Pulse 98 100 Oximetry ED Medical Decision Making - Lab Data XRay Report Signed Patient: JACK MCCORMACK MR#: [id number] : 1995 Acct:[id number] Age/Sex: 24 / M ADM Date: 02/24/20 Loc: ED Attending Dr: Ordering Physician: ED MD VIC Date of Service: 02/24/20 Procedure(s): XR chest 1V ap Accession Number(s): [id number] cc: ED MD VIC Fluoro Time In Minutes: C HEST 1 VIEW INDICATION / CLINICAL INFORMATION: Chest Pain. COMPARISON: 11/17/2019 FINDINGS: SUPPORT DEVICES: None. HEART / MEDIASTINUM: No significant abnormality. LUNGS / PLEURA: No significant pulmonary or pleural abnormality.. No pneumothorax. ADDITIONAL FINDINGS: No significant additional findings. IMPRESSION: 1. No acute findings. Signer Name: Lito Bell MD Signed: 02/24/2020 11:33 PM Workstation Name: [id number] Transcribed By: Dictated By: Lito Bell MD Electronically Authenticated By: Lito Bell MD Signed Date/Time: 02/24/202332 DD/ 32 TD/TT: - EKG Data EKG shows normal: sinus rhythm Rate: normal - EKG Data When compared to previous EKG there are: no significant change, previous EKG unavailable Interpretation: normal EKG (ns No ST Elevatd ekg interp by ed atteded) - Radiology Data Radiology results: report reviewed XRay Report Signed Patient: JACK MCCORMACK MR#: [id number] : 1995 Acct:[id number] Age/Sex: 24 / M ADM Date: 02/24/20 Loc: ED Attending Dr: Ordering Physician: ED MD VIC Date of Service: 02/24/20 Procedure(s): XR chest 1V ap Accession Number(s): [id number] cc: ED DOCMD Fluoro Time In Minutes: CHEST 1 VIEW INDICATION / CLINICAL INFORMATION: Chest Pain. COMPARISON: 11/17/2019 FINDINGS: SUPPORT DEVICES: None. HEART / MEDIASTINUM: No significant abnormality. LUNGS / PLEURA: No significant pulmonary or pleural abnormality.. No pneumothorax. ADDITIONAL FINDINGS: No significant additional findings. IMPRESSION: 1. No acute findings. Signer Name: Lito Bell MD Signed: 02/24/2020 11:33 PM Workstation Name: [id number] Transcribed By: Dictated By: Lito Bell MD Electronically Authenticated By: Lito Bell MD Signed Date/Time: 02/24/202332 DD/ 32 TD/TT: - Medical Decision Making chest pain resolved to 3/10 9 , no infiltrates no opacites. pt statx ammunition low in medications. plan: refill albuterol, prednisone , family visit, return to retirment. and Critical care attestation.: If time is entered above; I have spent that time in minutes in the direct care of this critically ill patient, excluding procedure time. ED Disposition Clinical Impression: GERD without esophagitis, Bronchitis Disposition: TO HOME OR SELFCARE Is pt being admited?: No Does the pt Need Aspirin: No Condition: Fair Instructions: Chronic Bronchitis (ED), Gastroesophageal Reflux Disease (ED) Prescriptions: predniSONE [Deltasone] 20 mg PO QDAY 5 Days #10 tab Albuterol INH(or & Nicu Only) [ProAir HFA Inhaler] 2 puff IH QID PRN #8.5 gram PRN Reason: Shortness Of Breath Referrals: PRIMARY CARE, [Primary Care Provider] - 3-5 Days Forms: Work/School Release Form(ED)
== END 2020-02-25 03:51 | disposition home or self-care (01) ==
LOC: ED 22:32
DX: R10.13 Epigastric pain (principal); F17.200 Nicotine dependence, unspecified, uncomplicated
CPT/HCPCS: 71045; 93005

== ENCOUNTER 2020-04-03 14:49 | Emergency (ER) | payer SELFPAY ==
[2020-04-03 16:01] VITALS: BP 145/83
--- NOTE | 2020-04-03 16:48 | Event Note ---
ED Screening Note Date of service: 04/03/20 Time: 16:46 ED Screening Note: 24-year-old -[place] male patient presents with complaints of throat pain, chest pain, and cough for the past 2 days. Patient states he has history of pericarditis and is scheduled to see a creative services intern soon in [place] He denies any shortness of breath Erythemic, swollen, exudative tonsils noted bilaterally on exam Lungs are clear to auscultation bilaterally This initial assessment/diagnostic orders/clinical plan/treatment(s) is/are subject to change based on patients health status, clinical progression and re- assessment by fellow clinical providers in the ED. Further treatment and workup at subsequent clinical providers discretion. Patient/guardian urged not to elope from the ED as their condition may be serious if not clinically assessed and managed. Initial orders include: CXR labs rapid strep
--- NOTE | 2020-04-03 17:13 | XRay Report ---
CHEST 2 VIEWS INDICATION / CLINICAL INFORMATION: chest pain, hx of pericarditis. COMPARISON: 02/24/2020 FINDINGS: SUPPORT DEVICES: None. HEART / MEDIASTINUM: No significant abnormality. LUNGS / PLEURA: No significant pulmonary or pleural abnormality. No pneumothorax. ADDITIONAL FINDINGS: No significant additional findings. IMPRESSION: 1. No acute findings. Signer Name: Sin Negrete MD Signed: 04/03/2020 5:09 PM Workstation Name: [id number]
[2020-04-03 18:20] LABS: Basophils % (Auto) 0.5 % (0.0-1.8); Eosinophils # (Auto) 0.1 K/mm3 (0.0-0.4); Eosinophils % (Auto) 1.1 % (0.0-4.3); Hematocrit 44.2 % (35.5-45.6); Hemoglobin 15.6 gm/dl (11.8-15.2); Lymphocytes # (Auto) 1.7 K/mm3 (1.2-5.4); Mean Corpuscular HGB Conc 35 % (32-34); Mean Corpuscular Volume 85 fl (84-94); Monocytes # (Auto) 0.7 K/mm3 (0.0-0.8); Monocytes % (Auto) 6.9 % (0.0-7.3); Platelet Count 216 K/mm3 (140-440); Red Blood Count 5.23 M/mm3 (3.65-5.03); Red Cell Distribution Width 14.7 % (13.2-15.2)
[2020-04-03 18:48] LABS: BUN/Creatinine Ratio 18; Blood Urea Nitrogen 16 mg/dL (9-20); Calcium 9.5 mg/dL (8.4-10.2)
[2020-04-03 18:49] LABS: Alanine Aminotransferase 54 units/L (7-56); Albumin 4.2 g/dL (3.9-5)
[2020-04-03 18:50] LABS: Erythrocyte Sedimentation Rate 2 mm/Hr (0-20)
--- NOTE | 2020-04-03 19:13 | Emergency Department Report ---
HPI - General Chief Complaint: Upper Respiratory Infection Time Seen by Provider: 04/03/20 16:42 - HPI HPI: 24-year-old -German male presents to the emergency department with a complaint of a few days of cough, intermittent chest pains, sore throat and subjective fever. The patient was seen at [place] last week for similar symptoms and says he was told that his pericarditis had returned. He is working on getting an appointment with a buckle sorter. The patient has been using an albuterol inhaler without any relief. He is a tobacco smoker but denies any illicit drug use. He has a past medical history of asthma and GERD. ED Past Medical Hx - Past Medical History Previous Medical History?: No Additional medical history: pericarditis - Surgical History Past Surgical History?: No - Social History Smoking Status: Never Smoker Substance Use Type: None - Medications Home Medications: Home Medications Medication Instructions Recorded Confirmed Last Taken Type Albuterol INH(or & Nicu Only) 2 puff IH QID PRN #1 inhalation 11/14/19 Unknown Rx [ProAir HFA Inhaler] predniSONE [Deltasone] 20 mg PO QDAY #5 tab 11/14/19 Unknown Rx traMADoL [Ultram 50 MG tab] 50 mg PO Q6HR PRN #10 tablet 11/14/19 Unknown Rx Amoxicillin [Trimox CAP] 500 mg PO Q8H #21 capsule 11/17/19 Unknown Rx Ibuprofen [Motrin 800 MG tab] 800 mg PO Q8HR PRN #30 tablet 11/17/19 Unknown Rx Nystas/Diphen/Xyl Visc/Mylanta 15 ml MM Q6H PRN #120 ml 11/17/19 Unknown Rx [Magic Mouthwash] Albuterol INH(or & Nicu Only) 2 puff IH QID PRN #8.5 gram 02/25/20 Unknown Rx [ProAir HFA Inhaler] predniSONE [Deltasone] 20 mg PO QDAY 5 Days #10 tab 02/25/20 Unknown Rx Albuterol INH(or & Nicu Only) 2 puff IH QID PRN #8.5 gram 04/03/20 Unknown Rx [ProAir HFA Inhaler] Azithromycin [Zithromax Z-FAUZIA] 250 mg PO DAILY #6 tab 04/03/20 Unknown Rx guaiFENesin/CODEINE [Robitussin AC] 5 ml PO Q6H PRN #100 oral.liqd 04/03/20 Unknown Rx ED Review of Systems ROS: Stated complaint: COUGH,CHILLS Other details as noted in HPI Comment: All other systems reviewed and negative Constitutional: fever (subjective). denies: chills Eyes: denies: eye pain, vision change ENT: throat pain. denies: ear pain Respiratory: cough. denies: wheezing Cardiovascular: denies: chest pain, palpitations Gastrointestinal: denies: abdominal pain, vomiting Genitourinary: denies: dysuria, discharge Musculoskeletal: myalgia. denies: joint swelling Skin: denies: rash, lesions Neurological: denies: headache, weakness Physical Exam - Physical Exam Vital Signs: Vital Signs 04/03/20 04/03/20 15:01 16:25 Temperature 99.3 F 99.3 F Pulse Rate 96 H 94 H Respiratory 18 18 Rate Blood Pressure 145/83 145/83 O2 Sat by Pulse 98 99 Oximetry Physical Exam: GENERAL: The patient is well-developed well-nourished. HENT: Normocephalic. Atraumatic. Patient has moist mucous membranes. There is bilateral tonsillar hypertrophy and erythema. No drooling or trismus. EYES: Extraocular motions are intact. NECK: Supple. Trachea is midline. CHEST/LUNGS: Mild expiratory wheezing. A dry cough heard during examination. There is no respiratory distress noted. HEART/CARDIOVASCULAR: Regular. There is no tachycardia. ABDOMEN: Abdomen is soft, nontender. Patient has normal bowel sounds. There is no abdominal distention. SKIN: Skin is warm and dry. NEURO: The patient is awake, alert, and oriented. The patient is cooperative. Normal speech. MUSCULOSKELETAL: There is no tenderness or deformity. There is no evidence of acute injury. ED Course Vital Signs 04/03/20 04/03/20 15:01 16:25 Temperature 99.3 F 99.3 F Pulse Rate 96 H 94 H Respiratory 18 18 Rate Blood Pressure 145/83 145/83 O2 Sat by Pulse 98 99 Oximetry ED Medical Decision Making - Lab Data Result diagrams: 04/03/20 17:24 04/03/20 17:24 - Radiology Data Radiology results: image reviewed interpreted by me: Chest x-ray does not show any acute process. There are no pleural effusions, obvious pneumonia and there is no pneumothorax. - Medical Decision Making This patient presents to the emergency department with a complaint of sore throat, body aches, mixed dry and productive cough. On examination he has bilateral tonsil hypertrophy and erythema and is positive on the rapid strep test. Chest x-ray does not show any pneumonia, pleural effusions, or any other acute process. The rest the patient's labs have been mostly unremarkable. Vital signs stable throughout his ED course thus far including being afebrile. The patient will be started on azithromycin. He was given a dose of Decadron here. He will also be given a prescription for an albuterol inhaler and Robitussin-AC for his cough. He will follow-up with a primary care physician and will return to the ER with any worsening of his symptoms or any acute distress. Critical Care Time: No Critical care attestation.: If time is entered above; I have spent that time in minutes in the direct care of this critically ill patient, excluding procedure time. ED Disposition Clinical Impression: Strep pharyngitis Upper respiratory infection Qualifiers: URI type: unspecified URI Qualified Code(s): J06.9 - Acute upper respiratory infection, unspecified Disposition: DC-01 TO HOME OR SELFCARE Is pt being admited?: No Condition: Stable Instructions: Strep Throat (ED), Upper Respiratory Infection (ED) Additional Instructions: Please follow-up with a primary care physician in the next few days. Return to the emergency department with any worsening of your symptoms or any acute distress. Prescriptions: Albuterol INH(or & Nicu Only) [ProAir HFA Inhaler] 2 puff IH QID PRN #8.5 gram PRN Reason: Shortness Of Breath guaiFENesin/CODEINE [Robitussin AC] 5 ml PO Q6H PRN #100 oral.liqd PRN Reason: Cough Azithromycin [Zithromax Z-FAUZIA] 250 mg PO DAILY #6 tab Referrals: MATT THOMPSON MD [Staff Physician] - 3-5 Days [facility] [Provider Group] - 3-5 Days Forms: Work/School Release Form(ED) Time of Disposition: 19:16
[2020-04-03] MEDS ORDERED: DEXAMETHASONE 4 MG TAB PO ONE (19:18)
== END 2020-04-03 19:30 | disposition home or self-care (01) ==
LOC: ED 14:49
DX: J02.0 Streptococcal pharyngitis (principal); J06.9 Acute upper respiratory infection, unspecified; Z79.899 Other long term (current) drug therapy
CPT/HCPCS: 36415; 71046; 80053; 84484; 85025; 85652; 86140; 87430; 93005; 99284; J8540

== ENCOUNTER 2020-11-29 12:25 | Emergency (ER) | payer SELFPAY ==
--- NOTE | 2020-11-29 12:47 | Event Note ---
ED Screening Note ED Screening Note: 24-year-old obese -Mongolian male presents emerged department complaining of a sudden onset left-sided chest pain and pressure associated with shortness of breath and orthopnea as well as lightheadedness. Also mentioning some left- sided numbness tingling and occasional weakness off and on for the past 1 to 2 hours. Reports no prior history of any cardiovascular disease no history history of any blood clots. Examination he is crackles to his left lower lung base This initial assessment/diagnostic orders/clinical plan/treatment(s) is/are subject to change based on patients health status, clinical progression and re- assessment by fellow clinical providers in the ED. Further treatment and workup at subsequent clinical providers discretion. Patient/guardian urged not to elope from the ED as their condition may be serious if not clinically assessed and managed. Initial orders include: cardiopulmonary evaluation.
[2020-11-29] MEDS ORDERED: ONDANSETRON 4 MG ODT TAB PO STA (12:48)
[2020-11-29 13:27] LABS: Basophils # (Auto) 0.1 K/mm3 (0.0-0.1); Basophils % (Auto) 0.9 % (0.0-1.8); Eosinophils # (Auto) 0.3 K/mm3 (0.0-0.4); Lymphocytes % (Auto) 43.4 % (13.4-35.0); Mean Corpuscular HGB Conc 36 % (32-34); Mean Corpuscular Volume 82 fl (84-94); Monocytes # (Auto) 0.7 K/mm3 (0.0-0.8); Monocytes % (Auto) 10.9 % (0.0-7.3); Platelet Count 238 K/mm3 (140-440); Red Blood Count 5.37 M/mm3 (3.65-5.03); Red Cell Distribution Width 13.6 % (13.2-15.2)
[2020-11-29 13:29] LABS: Hematocrit 44.3 % (35.5-45.6)
--- NOTE | 2020-11-29 13:30 | XRay Report ---
XR chest routine 2V INDICATION / CLINICAL INFORMATION: sob and chest pain COMPARISON: None available. FINDINGS: SUPPORT DEVICES: None. HEART / MEDIASTINUM: No significant abnormality. LUNGS / PLEURA: Lungs are clear. Costophrenic sulci are sharp. No pneumothorax. ADDITIONAL FINDINGS: No significant additional findings. IMPRESSION: 1. No acute findings. Signer Name: Tao Mar MD Signed: 11/29/2020 1:25 PM Workstation Name: [id number]
[2020-11-29 13:46] LABS: Alanine Aminotransferase 47 units/L (7-56); Albumin 4.3 g/dL (3.9-5); BUN/Creatinine Ratio 12; Blood Urea Nitrogen 12 mg/dL (9-20); Calcium 8.8 mg/dL (8.4-10.2); Hemolysis Index 10
[2020-11-29] MEDS ORDERED: KETOROLAC 30 MG/1 ML INJ IV ONE (13:53)
[2020-11-29] MEDS ORDERED: SODIUM CHLORIDE 0.9% 1000 ML 1,000 ML IV ONE (13:54)
[2020-11-29] MEDS ORDERED: MORPHINE 4 MG/1 ML INJ IV ONE (15:19)
[2020-11-29] MEDS ORDERED: METOCLOPRAMIDE 10 MG/2 ML INJ IV ONE (15:19)
--- NOTE | 2020-11-29 15:30 | Emergency Department Report ---
<REBECCA REYES - Last Filed: 11/29/20 17:20> ED Chest Pain HPI - General Chief Complaint: Chest Pain Stated Complaint: CHEST PAIN/LEG AND ARM NUMB Time Seen by Provider: 11/29/20 13:42 - Related Data Previous Rx's Medication Instructions Recorded Last Taken Type predniSONE [Deltasone] 20 mg PO QDAY #5 tab 11/14/19 Unknown Rx traMADoL [Ultram 50 MG tab] 50 mg PO Q6HR PRN #10 tablet 11/14/19 Unknown Rx Amoxicillin [Trimox CAP] 500 mg PO Q8H #21 capsule 11/17/19 Unknown Rx Ibuprofen [Motrin 800 MG tab] 800 mg PO Q8HR PRN #30 tablet 11/17/19 Unknown Rx Nystas/Diphen/Xyl Visc/Mylanta 15 ml MM Q6H PRN #120 ml 11/17/19 Unknown Rx [Magic Mouthwash] Albuterol Mdi (or & Nicu Only) 2 puff IH QID PRN #8.5 gram 02/25/20 Unknown Rx [ProAir HFA Inhaler] predniSONE [Deltasone] 20 mg PO QDAY 5 Days #10 tab 02/25/20 Unknown Rx Albuterol Mdi (or & Nicu Only) 2 puff IH QID PRN #8.5 gram 04/03/20 Unknown Rx [ProAir HFA Inhaler] Azithromycin [Zithromax Z-FAUZIA] 250 mg PO DAILY #6 tab 04/03/20 Unknown Rx guaiFENesin/CODEINE [Robitussin AC] 5 ml PO Q6H PRN #100 oral.liqd 04/03/20 Unknown Rx Omeprazole 40 mg PO DAILY #30 capsule. 04/27/20 Unknown Rx Albuterol Mdi (or & Nicu Only) 2 puff IH QID PRN #1 inhalation 11/29/20 Unknown Rx [ProAir HFA Inhaler] Ibuprofen [Motrin 800 MG tab] 800 mg PO Q8HR PRN #20 tablet 11/29/20 Unknown Rx Ondansetron [Zofran ODT TAB] 4 mg PO Q8HR #14 tab.rapdis 11/29/20 Unknown Rx Benzonatate [Tessalon Perles] 100 mg PO Q8HR #30 capsule 11/30/20 Unknown Rx Cetirizine HCl [Zyrtec 10mg tab] 10 mg PO DAILY #30 tablet 11/30/20 Unknown Rx Doxycycline Hyclate 100 mg PO Q12H #20 tablet. 11/30/20 Unknown Rx methylPREDNISolone [Medrol 4MG 4 mg PO DAILY #21 tab.ds.pk 11/30/20 Unknown Rx DOSEPAK (21 tabs)] Allergies Allergy/AdvReac Type Severity Reaction Status Date / Time No Known Allergies Allergy Verified 11/29/20 12:32 ED Past Medical Hx - Medications Home Medications: Home Medications Medication Instructions Recorded Confirmed Last Taken Type predniSONE [Deltasone] 20 mg PO QDAY #5 tab 11/14/19 Unknown Rx traMADoL [Ultram 50 MG tab] 50 mg PO Q6HR PRN #10 tablet 11/14/19 Unknown Rx Amoxicillin [Trimox CAP] 500 mg PO Q8H #21 capsule 11/17/19 Unknown Rx Ibuprofen [Motrin 800 MG tab] 800 mg PO Q8HR PRN #30 tablet 11/17/19 Unknown Rx Nystas/Diphen/Xyl Visc/Mylanta 15 ml MM Q6H PRN #120 ml 11/17/19 Unknown Rx [Magic Mouthwash] Albuterol Mdi (or & Nicu Only) 2 puff IH QID PRN #8.5 gram 02/25/20 Unknown Rx [ProAir HFA Inhaler] predniSONE [Deltasone] 20 mg PO QDAY 5 Days #10 tab 02/25/20 Unknown Rx Albuterol Mdi (or & Nicu Only) 2 puff IH QID PRN #8.5 gram 04/03/20 Unknown Rx [ProAir HFA Inhaler] Azithromycin [Zithromax Z-FAUZIA] 250 mg PO DAILY #6 tab 04/03/20 Unknown Rx guaiFENesin/CODEINE [Robitussin AC] 5 ml PO Q6H PRN #100 oral.liqd 04/03/20 Unknown Rx Omeprazole 40 mg PO DAILY #30 capsule. 04/27/20 Unknown Rx Albuterol Mdi (or & Nicu Only) 2 puff IH QID PRN #1 inhalation 11/29/20 Unknown Rx [ProAir HFA Inhaler] Ibuprofen [Motrin 800 MG tab] 800 mg PO Q8HR PRN #20 tablet 11/29/20 Unknown Rx Ondansetron [Zofran ODT TAB] 4 mg PO Q8HR #14 tab.rapdis 11/29/20 Unknown Rx Benzonatate [Tessalon Perles] 100 mg PO Q8HR #30 capsule 11/30/20 Unknown Rx Cetirizine HCl [Zyrtec 10mg tab] 10 mg PO DAILY #30 tablet 11/30/20 Unknown Rx Doxycycline Hyclate 100 mg PO Q12H #20 tablet. 11/30/20 Unknown Rx methylPREDNISolone [Medrol 4MG 4 mg PO DAILY #21 tab.ds.pk 11/30/20 Unknown Rx DOSEPAK (21 tabs)] ED Course - Reevaluation(s) Reevaluation #1: 11/29/20 17:21 Troponin negative x2. EKG unchanged x2. Vital signs unremarkable and stable. Patient resting comfortably in stretcher at this time, in no acute distress ED Medical Decision Making - Lab Data Result diagrams: 11/29/20 12:57 11/29/20 12:57 ED Disposition Clinical Impression: Atypical chest pain, History of pericarditis Disposition: - TO HOME OR SELFCARE Condition: Stable Instructions: Nonspecific Chest Pain, Adult, Chest Pain (ED) Additional Instructions: Please follow-up with a primary care physician in the next few days. I am sending your contact information to the [facility], and someone from their office should be contacting you shortly for close outpatient follow-up. Just in case, I am giving you a referral for one of their direct casting operator, Dr. Morales. Return to the emergency department with any worsening of your symptoms, new or concerning symptoms not addressed during this current emergency department v isit, or with any acute distress. Prescriptions: Ibuprofen [Motrin 800 MG tab] 800 mg PO Q8HR PRN #20 tablet PRN Reason: Pain , Severe (7-10) Albuterol Mdi (or & Nicu Only) [ProAir HFA Inhaler] 2 puff IH QID PRN #1 inhalation PRN Reason: Shortness Of Breath Ondansetron [Zofran ODT TAB] 4 mg PO Q8HR #14 tab.rapdis Referrals: PRIMARY CARE, [Primary Care Provider] - 2-3 Days NOEL MORALES MD [Staff Physician] - 2-3 Days DARIA PIERCE - Last Filed: 11/30/20 16:10> ED Chest Pain HPI - General Source: patient Mode of arrival: Ambulatory Limitations: No Limitations - History of Present Illness Initial Comments: This is a 24-year-old -[place]ian male presents to the emergency department with a complaint of some left-sided chest pain, shortness of breath, nausea without vomiting, that has been going on since this morning. The patient also complains of having the sensation that his left upper and lower extremities are "locking up" that have also been going on since this morning. He denies any headache, vision change, slurred speech, numbness, or any other neurological deficits. Patient says that he has a history of pericarditis. Denies any tobacco or illicit drug use. No recent travel or sick contacts at home. He has not taken anything for symptoms prior to presentation. Patient says that his chest discomfort is 8 out of 10 in intensity. It worsens with certain movements. No known alleviating factors. Severity scale (0 -10): 8 Heart Score - HEART Score History: Slightly suspicious EKG: Non-specific Age: < 45 Risk factors: No known risk factors Troponin: < normal limit HEART Score: 1 - Critical Actions Critical Actions: 0-3 pts:0.9-1.7%risk of adverse cardiac event.Candidate for discharge ED Review of Systems ROS: Stated complaint: CHEST PAIN/LEG AND ARM NUMB Other details as noted in HPI ED Past Medical Hx - Past Medical History Additional medical history: pericarditis - Social History Smoking Status: Current Every Day Smoker Substance Use Type: None ED Physical Exam - General Limitations: No Limitations - Other Other exam information: GENERAL: The patient is well-developed well-nourished. HENT: Normocephalic. Atraumatic. Patient has moist mucous membranes. EYES: Extraocular motions are intact. NECK: Supple. Trachea is midline. CHEST/LUNGS: Clear to auscultation. There is no respiratory distress noted. HEART/CARDIOVASCULAR: Regular. There is no tachycardia. There is no murmur. ABDOMEN: Abdomen is soft, nontender. Patient has normal bowel sounds. SKIN: Skin is warm and dry. NEURO: The patient is awake, alert, and oriented. The patient is cooperative. The patient has no focal neurologic deficits. Normal speech. No facial asymmetry. Cranial nerves II through XII grossly intact. No pronator drift. MUSCULOSKELETAL: There is no tenderness or deformity. There is no limitation range of motion. ED Course Vital Signs 11/29/20 11/29/20 12:39 16:40 Temperature 98.1 F 97.9 F Pulse Rate 70 50 L Respiratory 24 16 Rate Blood Pressure 146/88 Blood Pressure 103/51 [Left] O2 Sat by Pulse 97 97 Oximetry CONRAD score - Conrad Score Age > 65: (0) No Aspirin use within the Past 7 Days: (0) No 3 or more CAD Risk Factors: (0) No 2 or more Angina events in past 24 hrs: (1) Yes Known CAD with more than 50% Stenosis: (0) No Elevated Cardiac Markers: (0) No ST Deviation Greater than 0.5mm: (0) No CONRAD Score: 1 ED Medical Decision Making - Lab Data Result diagrams: 11/29/20 12:57 11/29/20 12:57 Lab Results 11/29/20 11/29/20 11/29/20 Range/Units 12:57 12:57 12:57 WBC 6.8 (4.5-11.0) K/mm3 RBC 5.37 H (3.65-5.03) M/mm3 Hgb 16.0 H (11.8-15.2) gm/dl Hct 44.3 (35.5-45.6) % MCV 82 L (84-94) fl MCH 30 (28-32) pg MCHC 36 H (32-34) % RDW 13.6 (13.2-15.2) % Plt Count 238 (140-440) K/mm3 Lymph % (Auto) 43.4 H (13.4-35.0) % [place] % (Auto) 10.9 H (0.0-7.3) % Eos % (Auto) 4.0 (0.0-4.3) % Baso % (Auto) 0.9 (0.0-1.8) % Lymph # (Auto) 3.0 (1.2-5.4) K/mm3 [place] # (Auto) 0.7 (0.0-0.8) K/mm3 Eos # (Auto) 0.3 (0.0-0.4) K/mm3 Baso # (Auto) 0.1 (0.0-0.1) K/mm3 Seg Neutrophils % 40.8 (40.0-70.0) % Seg Neutrophils # 2.8 (1.8-7.7) K/mm3 D-Dimer (0-234) ng/mlDDU Sodium 140 (137-145) mmol/L Potassium 4.0 (3.6-5.0) mmol/L Chloride 107.5 H (98-107) mmol/L Carbon Dioxide 26 (22-30) mmol/L Anion Gap 11 mmol/L BUN 12 (9-20) mg/dL Creatinine 1.0 (0.8-1.3) mg/dL Estimated GFR > 60 ml/min BUN/Creatinine Ratio 12 % Glucose 112 H (75-100) mg/dL Calcium 8.8 (8.4-10.2) mg/dL Total Bilirubin 0.20 (0.1-1.2) mg/dL AST 31 (5-40) units/L ALT 47 (7-56) units/L Alkaline Phosphatase 103 (35-129) units/L Troponin T < 0.010 (0.00-0.029) ng/mL NT-Pro-B Natriuret Pep < 5 (0-450) pg/mL Total Protein 7.3 (6.3-8.2) g/dL Albumin 4.3 (3.9-5) g/dL Albumin/Globulin Ratio 1.4 % 11/29/20 11/29/20 Range/Units 14:10 15:38 WBC (4.5-11.0) K/mm3 RBC (3.65-5.03) M/mm3 Hgb (11.8-15.2) gm/dl Hct (35.5-45.6) % MCV (84-94) fl MCH (28-32) pg MCHC (32-34) % RDW (13.2-15.2) % Plt Count (140-440) K/mm3 Lymph % (Auto) (13.4-35.0) % [place] % (Auto) (0.0-7.3) % Eos % (Auto) (0.0-4.3) % Baso % (Auto) (0.0-1.8) % Lymph # (Auto) (1.2-5.4) K/mm3 [place] # (Auto) (0.0-0.8) K/mm3 Eos # (Auto) (0.0-0.4) K/mm3 Baso # (Auto) (0.0-0.1) K/mm3 Seg Neutrophils % (40.0-70.0) % Seg Neutrophils # (1.8-7.7) K/mm3 D-Dimer < 135 (0-234) ng/mlDDU Sodium (137-145) mmol/L Potassium (3.6-5.0) mmol/L Chloride (98-107) mmol/L Carbon Dioxide (22-30) mmol/L Anion Gap mmol/L BUN (9-20) mg/dL Creatinine (0.8-1.3) mg/dL Estimated GFR ml/min BUN/Creatinine Ratio % Glucose (75-100) mg/dL Calcium (8.4-10.2) mg/dL Total Bilirubin (0.1-1.2) mg/dL AST (5-40) units/L ALT (7-56) units/L Alkaline Phosphatase (35-129) units/L Troponin T < 0.010 (0.00-0.029) ng/mL NT-Pro-B Natriuret Pep (0-450) pg/mL Total Protein (6.3-8.2) g/dL Albumin (3.9-5) g/dL Albumin/Globulin Ratio % - EKG Data -: EKG Interpreted by Me EKG shows normal: sinus rhythm, axis, intervals, QRS complexes, ST-T waves (There is some early repolarization ) Rate: normal - EKG Data When compared to previous EKG there are: no significant change Interpretation: unchanged when compared t (04/27/19) - Radiology Data Radiology results: image reviewed interpreted by me: Chest x-ray does not show any acute process. There are no pleural effusions, obvious pneumonia and there is no pneumothorax. No significant cardiomegaly. - Medical Decision Making This patient presents with the complaint of some midsternal left-sided chest pain and some type of discomfort or condition in which he feels that his left upper and lower extremities are "locking up." On examination the patient does not have any focal, motor or sensory deficits and his cranial nerves are intact. There is locking up does not appear consistent with any type of weakness or numbness in the patient is a 0 on the NIH stroke scale. He had an EKG that showed some J-point elevation and/or early repolarization. The [place] depression was not diffuse enough, and the rest the patient's symptoms, do not appear consistent with acute pericarditis. Patient is afebrile, there is no rub, murmur or gallop heard. Leaning forwards or laying supine does not provide any relief or cause any aggravation to his symptoms. Chest x-ray does not show any pneumonia, pleural effusions, pneumothorax, focal consolidation, or any other acute process. Patient's labs have been unremarkable including CBC, metabolic panel, negative D-dimer level, and negative troponins x2. He is low on the heart and CONRAD score. Prior to discharge the patient's pain score was 0 out of 10. For all these reasons he appears safe for discharge home at this time. He will be placed on anti-inflammatories. His contact information has been sent over to the [facility], and someone from their office should be contacting him shortly for close outpatient follow-up as part of our hospitals low risk chest pain protocol. Critical Care Time: No Critical care attestation.: If time is entered above; I have spent that time in minutes in the direct care of this critically ill patient, excluding procedure time. ED Disposition Is pt being admited?: No Time of Disposition: 15:48
[2020-11-29] MEDS ORDERED: MORPHINE 2 MG/1 ML INJ ONE (16:32)
[2020-11-29 16:41] VITALS: BP 103/51
== END 2020-11-29 18:26 | disposition home or self-care (01) ==
LOC: ED 12:25
DX: R07.89 Other chest pain (principal); Z79.899 Other long term (current) drug therapy; Z86.79 Personal history of other diseases of the circulatory system
CPT/HCPCS: 36415; 71046; 80053; 83880; 84484; 85025; 85379; 93005; 96361; 96374; 96375; 99284; J1885; J2270; J2765; J7030; Q0162

== ENCOUNTER 2020-11-30 05:32 | Emergency (ER) | payer SELFPAY ==
[2020-11-30 05:51] VITALS: BP 154/80
--- NOTE | 2020-11-30 05:55 | Emergency Department Report ---
- General Chief Complaint: Upper Respiratory Infection Stated Complaint: CHEST PAIN/COLD SX/LEG NUMB/SOB Source: patient Mode of arrival: Ambulatory Limitations: No Limitations - History of Present Illness Initial Comments: Patient is a 24-year-old -[place] male with a history of morbid obesity and pericarditis who presents to the ED with complaint of acute onset persistent severe frontal sinus pressure and headache, nasal and sinus congestion, persistent dry cough for the last 2 days. Patient states that the cough and frontal sinus pressure and headache have worsened in the last 12 hours. Patient was initially evaluated and treated in this ED for chest pain and leg pains. Patient states that he has been taking ibuprofen that was prescribed with no relief. Patient denies fever, chills, nausea, vomiting, sore throat, dizziness, syncope, shortness of breath, abdominal pain, diarrhea, change in vision or palpitations or chest pain MD Complaint: cough, rhinorrhea, nasal congestion, sinus pain, other (Frontal sinus pressure and headache) -: Sudden, days(s) (2) Severity: severe Severity scale (0 -10): 7 Quality: sharp, aching Consistency: constant Improves With: nothing Worsens With: nothing Associated Symptoms: denies other symptoms, headache, rhinorrhea, nasal congestion, cough. denies: fever, diaphoresis, sore throat, stiff neck, chest pain, shortness of breath, abdominal pain, nausea, vomiting, diarrhea, dysuria, rash, right sweats, weight loss, hoarseness Treatments Prior to Arrival: Ibuprofen - Related Data Previous Rx's Medication Instructions Recorded Last Taken Type predniSONE [Deltasone] 20 mg PO QDAY #5 tab 11/14/19 Unknown Rx traMADoL [Ultram 50 MG tab] 50 mg PO Q6HR PRN #10 tablet 11/14/19 Unknown Rx Amoxicillin [Trimox CAP] 500 mg PO Q8H #21 capsule 11/17/19 Unknown Rx Ibuprofen [Motrin 800 MG tab] 800 mg PO Q8HR PRN #30 tablet 11/17/19 Unknown Rx Nystas/Diphen/Xyl Visc/Mylanta 15 ml MM Q6H PRN #120 ml 11/17/19 Unknown Rx [Magic Mouthwash] Albuterol Mdi (or & Nicu Only) 2 puff IH QID PRN #8.5 gram 02/25/20 Unknown Rx [ProAir HFA Inhaler] predniSONE [Deltasone] 20 mg PO QDAY 5 Days #10 tab 02/25/20 Unknown Rx Albuterol Mdi (or & Nicu Only) 2 puff IH QID PRN #8.5 gram 04/03/20 Unknown Rx [ProAir HFA Inhaler] Azithromycin [Zithromax Z-FAUZIA] 250 mg PO DAILY #6 tab 04/03/20 Unknown Rx guaiFENesin/CODEINE [Robitussin AC] 5 ml PO Q6H PRN #100 oral.liqd 04/03/20 Unknown Rx Omeprazole 40 mg PO DAILY #30 capsule. 04/27/20 Unknown Rx Albuterol Mdi (or & Nicu Only) 2 puff IH QID PRN #1 inhalation 11/29/20 Unknown Rx [ProAir HFA Inhaler] Ibuprofen [Motrin 800 MG tab] 800 mg PO Q8HR PRN #20 tablet 11/29/20 Unknown Rx Ondansetron [Zofran ODT TAB] 4 mg PO Q8HR #14 tab.rapdis 11/29/20 Unknown Rx Benzonatate [Tessalon Perles] 100 mg PO Q8HR #30 capsule 11/30/20 Unknown Rx Cetirizine HCl [Zyrtec 10mg tab] 10 mg PO DAILY #30 tablet 11/30/20 Unknown Rx Doxycycline Hyclate 100 mg PO Q12H #20 tablet. 11/30/20 Unknown Rx methylPREDNISolone [Medrol 4MG 4 mg PO DAILY #21 tab.ds.pk 11/30/20 Unknown Rx DOSEPAK (21 tabs)] Allergies Allergy/AdvReac Type Severity Reaction Status Date / Time No Known Allergies Allergy Verified 11/29/20 12:32 ED Review of Systems ROS: Stated complaint: CHEST PAIN/COLD SX/LEG NUMB/SOB Other details as noted in HPI Constitutional: denies: chills, fever Eyes: denies: eye pain, eye discharge, vision change ENT: congestion, other (Frontal sinus pressure and headache). denies: ear pain, throat pain Respiratory: cough. denies: shortness of breath, wheezing Cardiovascular: denies: chest pain, palpitations Endocrine: no symptoms reported Gastrointestinal: denies: abdominal pain, nausea, diarrhea Genitourinary: denies: urgency, dysuria Musculoskeletal: denies: back pain, joint swelling, arthralgia Skin: denies: rash, lesions Neurological: headache (Frontal sinus pressure and headache). denies: weakness, paresthesias Psychiatric: denies: anxiety, depression Hematological/Lymphatic: denies: easy bleeding, easy bruising ED Past Medical Hx - Past Medical History Previous Medical History?: Yes Additional medical history: pericarditis - Surgical History Past Surgical History?: No - Social History Smoking Status: Current Every Day Smoker Substance Use Type: None - Medications Home Medications: Home Medications Medication Instructions Recorded Confirmed Last Taken Type predniSONE [Deltasone] 20 mg PO QDAY #5 tab 11/14/19 Unknown Rx traMADoL [Ultram 50 MG tab] 50 mg PO Q6HR PRN #10 tablet 11/14/19 Unknown Rx Amoxicillin [Trimox CAP] 500 mg PO Q8H #21 capsule 11/17/19 Unknown Rx Ibuprofen [Motrin 800 MG tab] 800 mg PO Q8HR PRN #30 tablet 11/17/19 Unknown Rx Nystas/Diphen/Xyl Visc/Mylanta 15 ml MM Q6H PRN #120 ml 11/17/19 Unknown Rx [Magic Mouthwash] Albuterol Mdi (or & Nicu Only) 2 puff IH QID PRN #8.5 gram 02/25/20 Unknown Rx [ProAir HFA Inhaler] predniSONE [Deltasone] 20 mg PO QDAY 5 Days #10 tab 02/25/20 Unknown Rx Albuterol Mdi (or & Nicu Only) 2 puff IH QID PRN #8.5 gram 04/03/20 Unknown Rx [ProAir HFA Inhaler] Azithromycin [Zithromax Z-FAUZIA] 250 mg PO DAILY #6 tab 04/03/20 Unknown Rx guaiFENesin/CODEINE [Robitussin AC] 5 ml PO Q6H PRN #100 oral.liqd 04/03/20 Unknown Rx Omeprazole 40 mg PO DAILY #30 capsule. 04/27/20 Unknown Rx Albuterol Mdi (or & Nicu Only) 2 puff IH QID PRN #1 inhalation 11/29/20 Unknown Rx [ProAir HFA Inhaler] Ibuprofen [Motrin 800 MG tab] 800 mg PO Q8HR PRN #20 tablet 11/29/20 Unknown Rx Ondansetron [Zofran ODT TAB] 4 mg PO Q8HR #14 tab.rapdis 11/29/20 Unknown Rx Benzonatate [Tessalon Perles] 100 mg PO Q8HR #30 capsule 11/30/20 Unknown Rx Cetirizine HCl [Zyrtec 10mg tab] 10 mg PO DAILY #30 tablet 11/30/20 Unknown Rx Doxycycline Hyclate 100 mg PO Q12H #20 tablet.dr 11/30/20 Unknown Rx methylPREDNISolone [Medrol 4MG 4 mg PO DAILY #21 tab.ds.pk 11/30/20 Unknown Rx DOSEPAK (21 tabs)] ED Physical Exam - General Limitations: No Limitations General appearance: alert, in no apparent distress - Head Head exam: Present: atraumatic, normocephalic, normal inspection - Eye Eye exam: Present: normal appearance, PERRL, EOMI Pupils: Present: normal accommodation - ENT ENT exam: Present: mucous membranes moist, TM's normal bilaterally, normal external ear exam, other (Grossly congested nasal passages; palpable frontal and maxillary sinus tenderness) - Neck Neck exam: Present: normal inspection, full ROM. Absent: tenderness, meningismus, lymphadenopathy - Respiratory Respiratory exam: Present: normal lung sounds bilaterally. Absent: respiratory distress, wheezes, stridor, chest wall tenderness, accessory muscle use, decreased breath sounds - Cardiovascular Cardiovascular Exam: Present: regular rate, normal rhythm, normal heart sounds. Absent: systolic murmur, diastolic murmur, rubs, gallop - GI/Abdominal GI/Abdominal exam: Present: soft, normal bowel sounds. Absent: tenderness, guarding, hyperactive bowel sounds, hypoactive bowel sounds - Extremities Exam Extremities exam: Present: normal inspection, full ROM, normal capillary refill - Back Exam Back exam: Present: normal inspection, full ROM. Absent: tenderness, CVA tenderness (R), muscle spasm, paraspinal tenderness, vertebral tenderness - Neurological Exam Neurological exam: Present: alert, oriented X3, CN II-XII intact, normal gait, reflexes normal - Psychiatric Psychiatric exam: Present: normal affect, normal mood - Skin Skin exam: Present: warm, dry, intact, normal color. Absent: rash ED Medical Decision Making - Medical Decision Making This is a 24-year-old -[place] male with a history of morbid obesity and pericarditis who presents to the ED with complaint of acute onset persistent severe frontal sinus pressure and headache, nasal and sinus congestion, persistent dry cough for the last 2 days. Patient states that the cough and frontal sinus pressure and headache have worsened in the last 12 hours. Patient was initially evaluated and treated in this ED for chest pain and leg pains. Patient states that he has been taking ibuprofen that was prescribed with no relief. In the ED, patient is alert and oriented x3 and is not in distress. Patient was discharged home on medications for acute upper respiratory infection and bronchitis. Patient is advised return to the ED immediately if symptoms get worse. Patient was otherwise advised to follow-up with his primary care physician in 7 to 10 days for reevaluation. - Differential Diagnosis Sinusitis; bronchitis; URI; pneumonia; COVID-19 Critical care attestation.: If time is entered above; I have spent that time in minutes in the direct care of this critically ill patient, excluding procedure time. ED Disposition Clinical Impression: Acute non-recurrent frontal sinusitis, Acute upper respiratory infection Acute bronchitis Qualifiers: Bronchitis organism: other organism Qualified Code(s): J20.8 - Acute bronchitis due to other specified organisms Disposition: DC-01 TO HOME OR SELFCARE Is pt being admited?: No Does the pt Need Aspirin: No Condition: Stable Instructions: Acute Bronchitis (ED), Sinusitis, Adult, [id number], Upper Respiratory Infection, Adult, [id number], Acute Bronchitis, Adult, [id number], Cough, Adult, [id number] Additional Instructions: Your symptoms are likely due to acute bronchitis versus sinusitis or upper respiratory infection. Therefore take medication with food, drink plenty of fluids and follow-up with your primary care physician in 5 to 7 days for reevaluation. Return to the ED immediately if symptoms get worse. Prescriptions: Doxycycline Hyclate 100 mg PO Q12H #20 tablet. methylPREDNISolone [Medrol 4MG DOSEPAK (21 tabs)] 4 mg PO DAILY #21 tab.ds.pk Benzonatate [Tessalon Perles] 100 mg PO Q8HR #30 capsule Cetirizine HCl [Zyrtec 10mg tab] 10 mg PO DAILY #30 tablet Referrals: [facility] [Provider Group] - 3-5 Days Time of Disposition: 05:56 Print Language: JAMAICAN
== END 2020-11-30 06:13 | disposition home or self-care (01) ==
LOC: ED 05:32
DX: J01.10 Acute frontal sinusitis, unspecified (principal); J20.9 Acute bronchitis, unspecified; F17.200 Nicotine dependence, unspecified, uncomplicated; Z79.899 Other long term (current) drug therapy
CPT/HCPCS: 99281

== ENCOUNTER 2022-04-24 02:12 | Emergency (ER) | payer SELFPAY ==
[2022-04-24 03:23] VITALS: BP 151/98
--- NOTE | 2022-04-26 14:04 | Electrocardiograph Report ---
[facility] Test Date: 2022-04-24 Test Time: 03:25:46 Pat Name: JACK MCCORMACK Department: Room: Gender: M Folding Machine Operator: KELSEY : 1995 Requested By: SHANTA RILEY Order Number: [id number] Reading MD: Shan Kumar Measurements Intervals [place] Rate: 54 P: 6 MO: 176 QRS: 69 QRSD: 90 T: 35 QT: 400 QTc: 379 Interpretive Statements Sinus bradycardia No previous ECG available for comparison Electronically Signed On 04-26-2022 14:03:53 EDT by Shan Kumar
== END 2022-04-24 07:00 | disposition left against medical advice (07) ==
LOC: ED 02:12
DX: R07.9 Chest pain, unspecified (principal); Z53.21 Procedure and treatment not carried out due to patient leaving prior to being seen by health care provider
CPT/HCPCS: 93005